=== PATIENT | female | born 1940 ===

== ENCOUNTER 2022-12-10 05:47 | Day surgery (SDC) | payer OTHER ==
[~2022-12-10] VITALS: Ht 162.6 cm; Wt 72.6 kg
[~2022-12-10 05:47] MED LIST: ATACAND32 MG PO; CARVEDILOL25 M1 PO; D3 + K2 DOTS 11 EACH PO; LEVO-T75 MCG PO
[2022-12-10] MEDS ORDERED: TRAM1TAB98 PO (09:01)
== END 2022-12-10 11:20 | disposition home or self-care (01) ==
LOC: CIR.AMB 05:47 → EDBD 09:45 → CIR.AMB 09:45
PROVIDERS: ATTEND Surgery
DX: C18.0 Malignant neoplasm of cecum (principal); R19.4 Change in bowel habit; Z20.822 Contact with and (suspected) exposure to COVID-19; E03.9 Hypothyroidism, unspecified; I10 Essential (primary) hypertension